=== PATIENT | female | born 1970 | race Two or more races ===

== ENCOUNTER 2022-08-24 05:30 | Day surgery (SDC) | payer OTHER ==
[~2022-08-24] VITALS: Ht 167.6 cm; Wt 72.6 kg
[~2022-08-24 05:30] MED LIST: CLONAZEP PO; LEXAP PO; ZETIA PO
== END 2022-08-24 14:30 | disposition home or self-care (01) ==
LOC: CIR.AMB 05:30
PROVIDERS: ATTEND Surgery Plastic and Reconstructive Surgery
DX: N64.81 Ptosis of breast (principal); L98.7 Excessive and redundant skin and subcutaneous tissue; C50.812 Malignant neoplasm of overlapping sites of left female breast; E88.1 Lipodystrophy, not elsewhere classified; Z88.6 Allergy status to analgesic agent